=== PATIENT | female | born 1935 | race Caucasian/White ===

== ENCOUNTER 2018-11-18 14:30 | Outpatient (CLI) | payer MEDICARE, BC, SELFPAY ==
--- NOTE | 2018-11-18 14:10 | DI.RAD_ITS ---
EXAM: XR HIP RT AP LAT ONLY INDICATION: eval R hip pain. COMPARISON: No exams were available for comparison TECHNIQUE: 2D digital imaging was performed. FINDINGS: The hip joint is mildly narrowed. There is mild periarticular hypertrophic spurring. There is no vicente dence of a fracture or dislocation. 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
== END 2018-11-18 14:50 ==
PROVIDERS: Referring Provider Family Medicine; Visit Provider Student in an Organized Health Care Education/Training Program
DX: M25.551 Pain in right hip (principal); M16.11 Unilateral primary osteoarthritis, right hip; M65.251 Calcific tendinitis, right thigh
CPT/HCPCS: 99203; 99213; 73502

== ENCOUNTER 2022-03-18 13:36 | Emergency (ER) | payer MEDICARE, BC, SELFPAY ==
--- NOTE | 2022-03-18 13:30 | RT.EKG_ITS ---
APPROVED REPORT Exam: Resting ECG Reason for Exam: chest pain Patient Location: E HR:86 bpm ECG Measurements Heart Rate 86 AXIS SD 133 P 79 QRSd 87 QRS 64 QT 367 T 68 QTc 439 Conclusion Sinus rhythm...normal P axis, V-rate 60- [address] depression, lateral leads...ST <-0.07mV, I aVL V5 V6
[2022-03-18 13:43] VITALS: BP 173/60; PULSE 84; RESP 18; TEMP 36.6; O2SAT 99
--- NOTE | 2022-03-18 14:00 | DI.CT_ITS ---
Exam(s) CT CHEST PE CTA EXAM: CT CHEST PE CTA CLINICAL HISTORY: chest pain, history of PE. TECHNIQUE: Imaging Protocol: CT angiography of the chest was performed using pulmonary embolus swetha col. Multi planar reconstructions were performed. CONTRAST MATERIAL: Intravenous: Omnipaque 350 Contrast volume: 100 cc COMPARISON: CT ABD PELVIS WITH CONTRAST from 12/20/2016 FINDINGS: CHEST: PULMONARY ARTERIES: There are no intraluminal filling defects to suggest acute pulmonary emboli. LUNGS: There are no infiltrates nor evidence of pulmonary infarction.. There are no pleural effusions . No ominous pulmonary nodules seen. MEDIASTINUM: There is no hilar nor mediastinal adenopathy. Visualized thyroid unremarkable. CARDIAC: Heart size is upper normal. There is no pericardial effusion.Caliber of the thoracic aorta is within normal limits. No evidence of dissection. There is no significant shift of the interventri cular septum. PARTIALLY VISUALIZED UPPERMOST ABDOMEN: No obvious findings OSSEOUS: No significant osseous lesions.Cortical irregularity lateral aspect right 7th and 8th ribs i s probably related to motion artifact as opposed to actual acute fractures.. IMPRESSION: 1. No evidence of acute pulmonary emboli. No evidence of pulmonary infarction.No pleural effusions. No pneumothorax. 2. Adjacent cortical irregularities of the lateral aspect of the right 7th and 8th ribs noted. This is probably related to respiratory motion artifact but correlation with site of tenderness is recomme nded. Cannot exclude subtle adjacent fractures of the right ribs at this level. First read by [facility]. Final report called by myself to ER physician 121 23 7:22 p.m. RADIATION DOSE DELIVERED: 210.66mGy.cm Total DLP DATA REPOSITORY: All CT scans at this facility are submitted to the National Radiology Data Registry (NRDR) Dose Index Registry (DIR) with the [employer] (ACR). RADIATION OPTIMIZATION: All CT scans at this facility use at least one of these dose optimization te chniques: automated exposure control; mA and/or kV adjustment per patient size (includes targeted exa ms where dose is matched to clinical indication); or iterative reconstruction.
--- NOTE | 2022-03-18 14:03 | W.ED.GENAD ---
Discharge Plan Disposition Patient Disposition: Home Condition: Stable Discharge Details Clinical Impression: Chest pain Primary Care Provider: Kalpana Paul ED Provider: Gustavo Hagen Home Meds and New Rx's Prescriptions: Continued aspirin [Lo-Dose Aspirin] 81 mg tablet,delayed release (DR/EC) 81 mg PO DAILY cholecalciferol (vitamin D3) 1,000 unit capsule 1,000 unit PO DAILY acetaminophen [Tylenol] 325 MG tablet 650 mg PO Q4H PRN PRN (Reason: Abdominal Pain) Qty: 30 0RF multivitamin with iron [Daily Multi-Vitamins/Iron] 1 EACH tablet 1 tab PO DAILY Discharge Instructions Instructions: Chest Pain (ED) Additional Instructions: follow up with your primary care provider within 1 week if you feel more ill, have severe worsening pain or fevers return to the emergency department Medical Decision Making 86 yo female who denies prior cardiac history, does have a history of PE but not on anticoagulation anymore, comes in with chest pain since yesterday afternoon. This morning she had upper back pain as well so came here. She states when she moves her left arm the pain sometimes worsens otherwise no pain with exertion, diaphoresis, no dyspnea. She arrives stable speaking in full sentences in no distress and appears well. She has clear lungs, no jvd, no leg swelling or calf tenderness. Does have pain with palpation to the anterior chest. Given her age will obtain troponinin and ekg. Given her history of PE will also obtain CTA. She has no tearing back pain and normal peripheral vascular exam so doubt dissection labs and imaging unremarkable, given over 24 hours of symptoms do not feel delta troponin indicated. Discussed results with patient and prefers outpatient management rather than observation admission which I feel is reasonable given reassuring workup she will f/u with her pcp and return precautions given Differential Diagnosis Differential Diagnosis: chest wall pain, nstemi, pe Medical Records Medical records reviewed: Yes I reviewed the patient's medical records. Imaging Data Radiologic Study: Attestation: I personally reviewed and interpreted this imaging study as follows: Imaging: CT Scan Radiologist's impression: no acute findings Lab Data Lab results reviewed: Yes I reviewed the patient's lab results. ECG Data Attestation: I personally reviewed and interpreted this ECG (s) as follows: Prior ECG tracings: not available for review Interpretation: sinus rhythm, rate of 86, pr 133, no stemi HPI General Mode of arrival: ambulatory. Date/Time Provider Initiated Documentation: 03/18/22 13:48. Limitations to Documentation: no limitations. Information obtained by: patient. History of Present Illness 86 year old F presents to the emergency department with the chief complaint of chest pain, described as moderate, Patient started experiencing this day(s) (1) and it has been constant. No relieving factors improve symptom(s), Other factors that worsen symptoms (moving her left arm) . Patient notes denies fever/chills. Patient did receive the following treatments prior to arrival, none Related Data Home Medications Medication Instructions Recorded Confirmed acetaminophen 325 mg tablet 650 mg PO Q4H PRN PRN Abdominal 11/17/16 11/18/18 (Tylenol) Pain #30 tabs multivitamin with iron (Daily 1 tab PO DAILY 12/20/16 11/18/18 Multi-Vitamins/Iron tablet) aspirin 81 mg tablet,delayed 81 mg PO DAILY 11/18/18 11/18/18 release (Lo-Dose Aspirin) cholecalciferol (vitamin D3) 25 1,000 unit PO DAILY 11/18/18 11/18/18 mcg (1,000 unit) capsule Previous Rx's Medication Instructions Recorded acetaminophen 325 mg tablet 650 mg PO Q4H PRN PRN Abdominal 11/17/16 (Tylenol) Pain #30 tabs Allergies Allergy/AdvReac Type Severity Reaction Status Date / Time niacin Allergy Intermediate Unverified 11/18/18 13:46 simvastatin Allergy Mild Unverified 11/18/18 13:46 ampicillin Allergy Unknown Unverified 11/18/18 13:46 Tveafby-BRO-MeL Reductase AdvReac Unverified 11/18/18 13:46 Inhibitor [Goyjcxz-Xkt-Skc Reductase Inhibitor] General Stated Complaint: Chest Pain HENOK: 3 Review of Systems All systems reviewed & are unremarkable except as noted in HPI and below Constitutional Constitutional: Denies chills, Denies fever(s) and Denies weakness Eyes Eyes: Denies loss of vision Cardiovascular Cardiovascular: Denies dyspnea Respiratory Respiratory: Denies cough and Denies dyspnea Gastrointestinal Gastrointestinal: Denies abdominal pain, Denies nausea and Denies vomiting Musculoskeletal Musculoskeletal: Denies joint swelling Neurologic Neurologic: Denies loss of vision and Denies weakness PFSH All Active Problems (Updated 03/18/22 @ 16:05 by Gustavo Hagen MD) Chest pain (Acute) Calcific tendinitis of right hip (Acute) Acute appendicitis with localized peritonitis (Acute) Ileus following gastrointestinal surgery (Acute) Postoperative pulmonary embolism (Acute) Upper GI bleed (Acute) disposition (Acute) Warfarin-induced coagulopathy (Acute) Hypomagnesemia (Acute) Anemia (Acute) Medical History (Updated 03/18/22 @ 16:05 by Gustavo Hagen MD) Duodenal ulcer GERD (gastroesophageal reflux disease) Hyperlipidemia Osteoarthritis Peptic ulcer disease Pulmonary embolus Upper GI bleed secondary to anticoagulation for PE Surgical History (Updated 12/12/17 @ 14:34 by [employer] [place]) Appendectomy (11/10/16) Colonoscopy - IV Sedation EGD - MAC (12/01/16) Open Carpal Tunnel release Replacement of total knee joint bilateral Social History Smoking/Tobacco Use Status: Never Smoking risk assessment performed?: Yes Drug use: Never Current gender identity: female Do you feel safe in your relationship?: Yes Exam Const General: no acute distress Orientation: alert HENMT Head: normal to inspection Ears: external ears normal General nose exam: external nose normal Mouth: moist mucous membranes Eyes General: appearance normal, both eyes and all related structures Neck Neck: normal visual inspection Resp Effort & Inspection: normal respiratory effort and able to speak in complete sentences Auscultation: clear to auscultation bilaterally Cardio Jugular venous pressure: no JVD Rate: regular rate GI Palpation: soft and nontender Back/Spine/Pelvis Back: no CVA tenderness Skin General skin exam: no rashes or lesions noted Neuro General: patient alert and patient oriented x3 Extrem General: normal to inspection Psych Mental Status: mental status grossly normal Course Vital Signs Vital signs: Vital Signs Temperature 36.6 C 03/18/22 13:43 Pulse 84 03/18/22 13:43 Respiratory Rate 18 03/18/22 13:43 Blood Pressure 173/60 H 03/18/22 13:43 Pulse Oximetry 99 03/18/22 13:43 Temperature 36.6 C 03/18/22 13:43 Temperature Source Temporal Artery Scan 03/18/22 13:43 Pulse 84 03/18/22 13:43 Respiratory Rate 18 03/18/22 13:43 Blood Pressure 173/60 H 03/18/22 13:43 Blood Pressure Position Supine 03/18/22 13:43 Pulse Oximetry 99 03/18/22 13:43 Oxygen Delivery Method Room Air 03/18/22 13:43 Oxygen Flow Rate 0 03/18/22 13:43 Pain Level 3 03/18/22 13:43
[2022-03-18 14:26] LABS: Abs Immature Grans 0.02 10^3/uL (0.0-0.06); Absolute Basophil Count 0.04 10^3/uL (0.0-0.2); Absolute Eosinophil Count 0.04 10^3/uL (0.0-0.7); Absolute Lymphocyte Count 1.78 10^3/uL (1.2-3.4); Absolute Monocyte Count 0.62 10^3/uL (0.1-0.8); Absolute Neutrophil Count 4.95 10^3/uL (1.2-6.7); Basophils % 0.5; Eosinophils % 0.5; HCT 44.4 % (36.0-46.0); HGB 14.7 g/dL (11.2-15.7); Immature Grans % 0.3; Lymphocytes % 23.9; MCH 30.5 pg (27.0-33.0); MCHC 33.1 % (32.0-36.0); MCV 92 fL (80-95); MPV 10.7 fL (8.0-11.0); Monocytes % 8.3; Neutrophils % 66.5; Platelet Count 225 10^3/uL (130-400); RBC 4.82 10^6/uL (3.93-5.22); RDW 14.2 % (11.7-14.6); RDW-SD 48.3 fL; WBC 7.45 10^3/uL (4.4-10.8)
[2022-03-18 14:44] LABS: ALT 22 U/L (14-59); AST 28 U/L (15-37); Alkaline Phosphatase 116 U/L (46-116); Anion Gap 8.6 mmol/L (3-11); BUN 28 mg/dL (7-18); Bilirubin, Total 0.5 mg/dL (0.2-1.0); CO2 30.4 mmol/L (21.0-32.0); CREATININE 0.9 mg/dL (0.55-1.02); Calcium 10.5 mg/dL (8.5-10.1); Chloride 102 mmol/L (98-107); Estimated GFR 63.04 (mL/min/1.73m2); Glucose 123 mg/dL (74-106); Magnesium 2.1 mg/dL (1.8-2.4); Potassium 3.7 mmol/L (3.5-5.1); Sodium 141 mmol/L (136-145); Total Protein 9.1 g/dL (6.4-8.2); Troponin I < 50 ng/L (<or=60)
[2022-03-18 14:45] LABS: PTT Activated 22.5 sec (21.0-27.5); Prothrombin Time 9.8 sec (9.3-11.0)
[2022-03-18 14:53] VITALS: RESP 12
[2022-03-18] MEDS: Normal Saline - Diluent 50 ML VIAL IJ (15:12)
[2022-03-18] MEDS: Normal Saline Flush 10 ML SYR IVP (15:13)
[2022-03-18] MEDS: Omnipaque 350 MG/ML 100 ML BTL 60 ML IJ (15:13)
--- NOTE | 2022-03-18 15:37 | DI.VRAD_ITS ---
PROCEDURE INFORMATION: Exam: CTA Chest With Contrast Exam date and time: 03/18/2022 3:06 PM Age: 86 years old Clinical indication: Other: Chest pain, history of pe TECHNIQUE: Imaging protocol: Computed tomographic angiography of the chest with contrast. 3D rendering (Not supervised by radiologist): MIP and/or 3D reconstructed images were created by the technologist. Contrast material: OMNIPAQUE 350; Contrast volume: 60 ml; Contrast route: INTRAVENOUS (IV); COMPARISON: CT CHEST FOR PE, ABD PELVIS W 11/20/2016 5:52 PM FINDINGS: Pulmonary arteries: No evidence of pulmonary embolus to the segmental level. Aorta: No aneurysm of the aorta. No dissection of the aorta. Lungs: Bibasilar atelectasis Pleural spaces: Unremarkable. No pneumothorax. No pleural effusion. Heart: Unremarkable. No cardiomegaly. No pericardial effusion. Lymph nodes: Unremarkable. No enlarged lymph nodes. Bones/joints: Unremarkable. No acute fracture. Soft tissues: Unremarkable. Other findings: Motion artifact degrades some of the images IMPRESSION: 1. No evidence of pulmonary embolus to the segmental level. 2. No aneurysm of the aorta. 3. No dissection of the aorta. Dictated and Authenticated by: Beronica Alexandra MD. Ordering:MADELAINE Chen MD
[2022-03-18 16:42] VITALS: BP 136/40; PULSE 80; RESP 15; O2SAT 98
== END 2022-03-18 16:51 | disposition home or self-care (01) ==
PROVIDERS: Emergency Provider Emergency Medicine
DX: R07.9 Chest pain, unspecified (principal)
CPT/HCPCS: 71275; 80053; 93005; 99285; 83735; 84484; 85025; 85610; 85730; 93010; 99284; J3490

== ENCOUNTER 2022-05-18 03:15 | Outpatient (CLI) | payer MEDICARE, BC, SELFPAY ==
--- NOTE | 2022-05-18 15:00 | DI.US_ITS ---
APPROVED REPORT EXAM: Comprehensive 2D, Doppler, and color-flow Echocardiogram Patient Location: Out-Patient [facility] Heater: Kahlil Thomas RDMS, RVT Indications: HARRIS Other Information Study Quality: Adequate Conclusion Normal left ventricular wall thickness and chamber size. Ejection fraction is 61%. Wall motion is n ormal Normal right ventricular size and systolic function Left atrium is moderately dilated. Right atrium is normal in size The aortic valve is trileaflet without stenosis or regurgitation Normal mitral valve with mild regurgitation Normal tricuspid valve with trace to mild regurgitation. Estimated right ventricular systolic pressu re is 31 mmHg Wall motion Left Ventricle The left ventricle is normal size. The left ventricular systolic function is normal. The left ventric ular ejection fraction is within the normal range. There is normal left ventricular wall thickness. T here is normal LV segmental wall motion. The left ventricular diastolic function is normal. There is no ventricular septal defect visualized. The Left Ventricular Ejection Fraction is 61%. Right Ventricle The right ventricle is normal size. The right ventricular systolic function is normal. The RVSP is 31 .1 mmHg. Atria Left atrium is moderately dilated. Right atrium is normal in size The interatrial septum is intact wi th no evidence for an atrial septal defect. Aortic Valve The aortic valve is normal in structure. Aortic valve is trileaflet. There is no aortic valvular sten osis. No aortic regurgitation is present. Mitral Valve The mitral valve is normal in structure. No evidence of mitral valve stenosis. Mild mitral regurgita tion. Tricuspid Valve The tricuspid valve is normal in structure. There is no tricuspid valve stenosis. Mild to moderate tr icuspid regurgitation. Pulmonic Valve The pulmonary valve is normal in structure. There is no pulmonic valvular stenosis. There is no pulmo leeanne valvular regurgitation. Great Vessels The aortic root is normal in size. Ascending aorta is not well visualized. Aortic arch is not well v isualized. The IVC is normal in size and collapses >50% with inspiration. Pericardium There is no pericardial effusion. 2D Dimensions IVSD d PLAX 0.44 cm F: 0.6-1.0 LV Vol A2C d MOD 44.5 mL LVPW d PLAX 0.67 cm F: 0.6 - 1.0 LV Vol A4C d MOD 55.5 mL LVID d PLAX 4.37 cm F: 3.8 - 5.2 LA vol/ BSA A4C s A-L 35.9 mL/m2 LVDs 2.90 cm F: 2.2 - 3.5 LA Area A4C s MOD 16.57 cm2 Ao Root d 2.32 cm F: 2.7 - 3.3 LV EF A4C MOD 63.1 % LV EF Teichholz 61.3 % LV EF A2C MOD 63.3 % LVEF (Isabel's) 64.13 % F: 54 - 74 LV EF Biplane MOD 64.1 % LV Volume 44.60 mL F: 46 - 106 SV 33.72 mL LV Volume Index 30.97 mL/m2 F: 29 - 61 SV Index 23.47 mL/m2 LV Vol Biplane MOD 52.6 mL FS 32.65 % M-Mode TAPSE 2.60 cm (M/F) >1.7 LV Diastology MV E' medial 0.089 (>0.07 m/s) E/A Ratio 0.9 LV E/e MED 8.90 (<14) MV E Vmax 0.80 (0.4-1.3 m/s) MV E' lateral 0.111 (>0.1 m/s) MV A Vmax 0.90 (0.4-1.3 m/s) LV E/e LAT 7.10 (<14) MV E/A Ratio 0.87 MV E/E' medial 8.91 MV E/E' lateral 7.13 Aortic Valve LVOT Area 1.99 cm2 AoV Area Vmax 1.19 cm2 LVOT Vmax 0.85 m/s AoV Area/ BSA (Vmax) 0.83 cm2/m2 LVOT Mean Francisco J. 0.61 m/s RODERICK Mean Francisco J. 1.19 cm2 LVOT Peak Grad 2.9 mmHg RODERICK Mean Francisco J. Index 0.83 cm2/m2 LVOT Mean Grad 1.6 mmHg LVOT VTI 0.215 m LVOT Diam s 1.55 cm AoV Vmax 1.42 m/s Velocity Ratio 0.60 AoV Mean Francisco J. 1.02 m/s AoV Peak Grad 8.0 mmHg LVOT SV 42.80 mL AoV Mean Grad 4.6 mmHg AoV VTI 0.340 m AoV Area VTI 1.26 cm2 AoV Area/ BSA (VTI) 0.88 cm/m2 Mitral Valve MV DT 276 (160-240 msec) MV PHT 80 msec MV Area PHT 2.75 cm2 MV VTI 0.345 m MV Area VTI 1.24 (4.0-6.0 cm2) Pulmonary Valve PV Vmax 1.08 (0.5-1.5 m/s) RVOT Peak Gr. 1.67 mmHg PV Peak Grad 4.6 mmHg RVOT Mean Gr. 1.05 mmHg PV Mean Grad 2.3 mmHg RVOT VTI 0.159 m PV VTI 0.214 m RVOT Vmax 0.65 m/s Tricuspid Valve TR Peak Grad 28.1 mmHg TR Vmax 2.65 m/s RA Pressure 3.00 mmHg RVSP (TR) 31.1 mmHg
== END 2022-05-18 03:35 ==
LOC: DI 03:16
PROVIDERS: PCP Family Medicine; Visit Provider Family Medicine
DX: R06.09 Other forms of dyspnea (principal)
CPT/HCPCS: 93306

== ENCOUNTER 2022-08-02 00:38 | Outpatient (CLI) | payer MEDICARE, BC, SELFPAY ==
--- NOTE | 2022-08-02 | DI.RAD_ITS ---
Exam(s) XR CHEST 2V PA LATERAL EXAM: XR CHEST 2V PA LATERAL CLINICAL HISTORY: DYSPNEA ON EXERTION, R06.09 TECHNIQUE: 2D digital imaging was performed of the chest. Two images were obtained. PA and lateral views were obtained. COMPARISON: CR PORTABLE CHEST ONE VIEW from 11/24/2016 FINDINGS: MEDIASTINUM: Normal. HEART: Normal. PULMONARY VASCULATURE: Normal. LUNGS: Clear. PLEURAL SPACE: No pleural effusion or pneumothorax. BONE:Within normal limits for the patient's age. OTHER FINDINGS:Normal. IMPRESSION: No acute pulmonary findings. DATA REPOSITORY: RADIATION DOSE DELIVERED:
== END 2022-08-02 00:58 ==
LOC: DI 00:38
PROVIDERS: PCP Family Medicine; Visit Provider Family Medicine
DX: R06.09 Other forms of dyspnea (principal)
CPT/HCPCS: 71046

== ENCOUNTER 2022-08-11 03:11 | Outpatient (CLI) | payer MEDICARE, BC, SELFPAY ==
[2022-08-11] MEDS: Inhaler, Assist Device 1 EACH MC (14:22)
[2022-08-11] MEDS: Albuterol HFA 18 GM 200 PUFF INH IH (14:22)
--- NOTE | 2022-08-14 14:06 | W.PFT ---
Date of service: 08/11/22 Time of Service: 12:49 Pulmonary Function Test Result Indications: Cough Interpretation Spirometry: There is no airflow limitation. There is no significant bronchodilator response. Lung Volumes: There is some air trapping. Diffusion Capacity: Normal diffusion. Airway Pressure: Normal airways resistance. Impression Normal pulmonary function testing but with likely air trapping. This can be seen in asthma. Clinical Correlation therefore is recommended.
== END 2022-08-11 03:12 | disposition home or self-care (01) ==
LOC: RT 03:11
PROVIDERS: PCP Family Medicine; Visit Provider Family Medicine
DX: R05.8 Other specified cough (principal); J45.909 Unspecified asthma, uncomplicated
CPT/HCPCS: 94060; 94726; 94729

== ENCOUNTER 2022-09-19 01:47 | Outpatient (CLI) | payer MEDICARE, BC, SELFPAY ==
--- NOTE | 2022-09-19 14:41 | DI.RAD_ITS ---
Exam(s) XR HAND LT COMPLETE EXAM: XR HAND LT COMPLETE CLINICAL HISTORY: LT HAND PAIN, M79.642. TECHNIQUE: 2D digital imaging was performed. COMPARISON: No exams were available for comparison FINDINGS: 3 views No evidence of acute fracture nor subluxations. No erosions. Moderate-advanced degenerative changes noted at the 1st carpometacarpal joint. MCP joints appear relatively unremarkable as do the PIP balbina nts. There are significant degenerative changes in the DIP joints, most evident within the DIP joint of the 2nd-index finger where there is periarticular calcification evident more prominent than at th e other DIP joints. Probable equivalent of Heberden's nodes IMPRESSION: Significant degenerative changes most evident in the DIP joints. DATA REPOSITORY: RADIATION DOSE DELIVERED:
== END 2022-09-19 02:07 ==
LOC: DI 01:47
PROVIDERS: PCP Family Medicine; Visit Provider Family Medicine
DX: M19.042 Primary osteoarthritis, left hand (principal)
CPT/HCPCS: 73130

== ENCOUNTER 2022-10-06 02:46 | Outpatient (CLI) | payer MEDICARE, BC, SELFPAY ==
[2022-10-06] MEDS: Albuterol HFA 18 GM 200 PUFF INH IH (17:03)
[2022-10-06] MEDS: Methacholine 100 MG VIAL IH (17:03)
[2022-10-06] MEDS: Inhaler, Assist Device 1 EACH MC (17:04)
--- NOTE | 2022-10-10 06:59 | W.PFT ---
Date of service: 10/06/22 Time of Service: 15:00 Pulmonary Function Test Result Indications: Dyspnea Interpretation Spirometry: There is no airflow limitation. There was a 14% decrease in FEV1 with administration of 16mg/mL methacholine. Impression Negative methacholine challenge Clinical Correlation therefore is recommended.
== END 2022-10-06 02:47 | disposition home or self-care (01) ==
LOC: RT 02:46
PROVIDERS: PCP Family Medicine; Visit Provider Physician Assistant Surgical
DX: J45.909 Unspecified asthma, uncomplicated (principal)
CPT/HCPCS: 94060; 94070; J7674

== ENCOUNTER → 2022-11-15 09:23 | Outpatient (BNVA) | payer MEDICARE, BC, SELFPAY | PROVIDERS: PCP Family Medicine; Referring Provider Family Medicine; Visit Provider Psychiatry & Neurology Neurology | DX: G56.02 Carpal tunnel syndrome, left upper limb (principal); M79.642 Pain in left hand | CPT/HCPCS: 95909; 99203; 99213 ==

== ENCOUNTER → 2022-12-14 08:39 | Outpatient (BNVA) | payer MEDICARE, BC, SELFPAY | PROVIDERS: PCP Family Medicine; Referring Provider Family Medicine; Visit Provider Student in an Organized Health Care Education/Training Program | DX: G56.02 Carpal tunnel syndrome, left upper limb (principal); M65.332 Trigger finger, left middle finger; M65.342 Trigger finger, left ring finger; I34.0 Nonrheumatic mitral (valve) insufficiency; I07.1 Rheumatic tricuspid insufficiency | CPT/HCPCS: 99213 ==

== ENCOUNTER 2022-12-20 10:17 | Day surgery (SDC) | payer MEDICARE, BC, SELFPAY ==
[2022-12-20 10:45] VITALS: BP 165/67; PULSE 73; RESP 18; TEMP 36.4; O2SAT 98
--- NOTE | 2022-12-20 11:16 | W.ANESPRE ---
General Info Date of Service Date Performed: 12/20/22 Height: 5 ft 1 in Weight: 49.895 kg Body Mass Index (BMI): 20.7 Surgical Procedure: Operation Date: 12/20/22 12:55 Proposed Procedure Side Surgeon p Wrist ECTR Left Giovanni Montalvo MD s Trigger Finger Release, LMF & LRF Giovanni Montalvo MD Meds Allergies and Home Medications Allergies Allergy/AdvReac Type Severity Reaction Status Date / Time niacin Allergy Intermediate Verified 12/20/22 10:56 simvastatin Allergy Mild Verified 12/20/22 10:56 ampicillin Allergy Unknown Skin Rash Verified 12/20/22 10:56 Sekamnf-SDN-UoC Reductase AdvReac Verified 12/20/22 10:56 Inhibitor [Nkdahyi-Dbx-Sho Reductase Inhibitor] penicillin Allergy Intermediate Skin Rash Uncoded 12/20/22 10:56 Home Medication Medication Instructions Recorded acetaminophen 325 mg tablet 650 mg (2 x 325 mg) PO Q4H PRN PRN 11/17/16 (Tylenol) Abdominal Pain #30 tabs cholecalciferol (vitamin D3) 25 1,000 unit PO DAILY 11/18/18 mcg (1,000 unit) capsule cyanocobalamin (vitamin B-12) 500 500 mcg PO DAILY 09/13/22 mcg tablet vit C 250 mg-vit E 90 mg-zinc 40 2 tab PO DAILY 09/18/22 mg-copper 1 cn-fbqnvr-eftjnt capsule (PreserVision AREDS-2) Current Visit Medications: Current Medications Generic Name Dose Route Start Last Admin Trade Name Freq PRN Reason Stop Dose Admin Ringer's Solution 1,000 mls @ 80 mls/hr 12/20/22 06:00 IV 01/18/23 23:59 INFUSION RENETTA Cefazolin Sodium/Dextrose 2 gm in 50 mls @ 100 mls/hr 12/20/22 06:00 Ancef Duplex IVPB 01/18/23 23:59 PREOP RENETTA IV Miscellaneous Supplies 1 each 12/20/22 06:00 Iv Access IV 01/18/23 23:59 DIRECTED RENETTA Sodium Chloride 0 ml 12/20/22 06:00 Normal Saline Flush 10 Ml Syr IV 01/18/23 23:59 PRN PRN Sodium Chloride 0 ml 12/20/22 06:00 Normal Saline 10 Ml Vial IJ 01/18/23 23:59 DIRECTED PRN Sterile Water 0 ml 12/20/22 06:00 Water,Injection,Sterile 10 Ml Vial IJ 01/18/23 23:59 DIRECTED PRN PFSH Active Problems Active Problems: Problem Status Onset Code Trigger finger, left ring finger M65.342 Trigger finger, left middle finger M65.332 Left carpal tunnel syndrome G56.02 Asthma J45.909 Osteopenia M85.80 Paresthesia R20.2 Subjective tinnitus of left ear H93.12 Hypokalemia E87.6 Mitral valve regurgitation I34.0 Tricuspid valve regurgitation I07.1 Pain in right hip M25.551 BRBPR (bright red blood per rectum) K62.5 Dyspnea R06.00 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 Peptic ulcer disease Duodenal ulcer GERD (gastroesophageal reflux disease) Upper GI bleed secondary to anticoagulation for PE Pulmonary embolus Osteoarthritis Hyperlipidemia Surgical History Surgical History (Updated 12/19/22 @ 10:37 by Prosper Romo) Hx of repair of rotator cuff History of bilateral knee replacement Hx of tubal ligation Hx of dilation and curettage x2 following miscarriages. Replacement of total knee joint bilateral Open Carpal Tunnel release EGD - MAC (12/01/16) Colonoscopy - IV Sedation Appendectomy (11/10/16) Tobacco Smoking/Tobacco Use Status: Never Alcohol Alcohol Intake: never Substance Use Substance use: Never Substance use type: does not use Vital Signs and Lab Results Vital Signs Most Recent Vital Signs in EMR: Most Recent Vital Signs Temp Pulse Resp BP Pulse Ox 36.4 C L 73 18 165/67 H 98 12/20/22 10:45 12/20/22 10:45 12/20/22 10:45 12/20/22 10:45 12/20/22 10:45 Lab Results Blood Type / Crossmatch: No Data to Display Complete Blood Count: No Data to Display Complete Metabolic Panel: No Data to Display Liver Function Panel: No Data to Display Coagulation Panel: No Data to Display Cardiac Panel: No Data to Display Arterial Blood Gas: No Data to Display Venous Blood Gas: No Data to Display Pancreas Panel: No Data to Display Thyroid Panel: No Data to Display Infectious Disease: No Data to Display Blood Cultures: No Data to Display Toxicology Panel: No Data to Display Anesthesia Assessment and Plan Anesthesia History Personal History: No History of Anesthesia Complications Family History: No Family History of Anesthesia Complications Exercise Tolerance Exercise Tolerance: Metabolic Equivalents>4 Pertinent Negatives Pertinent Negatives: No Symptoms of GERD Cardiac & Pulmonary Exam Cardiac Exam: Normal S1/S2 Heart Sounds Pulmonary Exam: Clear Bilateral Breath Sounds Implantable Cardiac Device Does patient have a Pacemaker or an ICD?: No Airway Exam Known Difficult Airway: No Mallampati Class: 2 Mouth Opening: Normal (> 3cm) Thyromental Distance: Greater than 3 cm Neck Range of Motion: Full ROM Neck Circumference: Normal Teeth Condition: Generalized Poor Dentition ASA Classification ASA Score: ASA 2 Emergency Case?: No NPO Status NPO Status: NPO Clears >2 hours, Solids >8 hours Anesthesia Plan Resuscitation Status: Full Code Anesthesia Technique: MAC Anesthesia Airway Planned: Natural Airway Monitors Used: Standard Monitors
[2022-12-20 11:21] VITALS: BMI 20.7
[2022-12-20] MEDS: Lactated Ringers 1,000 ML 80 ML IV (11:31)
--- NOTE | 2022-12-20 12:20 | W.PM.DSUDISC ---
Date of service: 12/20/22 Time of Service: 12:20 Discharge Plan Disposition Patient Disposition: Home Condition: Good Discharge Details Reason For Visit: L ECTR, LMF and LRF trigger release Attending Provider: Giovanni Montalvo Primary Care Provider: Jessica De La Vega Home Meds and New Rx's Prescriptions: New acetaminophen 500 mg tablet 1,000 mg PO TID Qty: 90 0RF hydrocodone-acetaminophen 5-325 mg tablet 1 tab PO Q6H PRN (Reason: pain) Qty: 6 0RF ibuprofen 600 mg tablet 600 mg PO TID PRN (Reason: pain) Qty: 90 0RF Continued cholecalciferol (vitamin D3) 1,000 unit capsule 1,000 unit PO DAILY cyanocobalamin (vitamin B-12) 500 mcg tablet 500 mcg PO DAILY PreserVision AREDS-2 250-90-40-1 mg capsule 2 tab PO DAILY Discontinued acetaminophen [Tylenol] 325 MG tablet 650 mg PO Q4H PRN PRN (Reason: Abdominal Pain) Qty: 30 0RF Discharge Instructions Stand Alone Forms: [place] C. Tunnel Release, [place] T. Finger Release Referrals: Giovanni Montalvo MD [ [facility] STAFF PHYSICIAN] - Activity:: Activity as Tolerated Remove Dressings/Wound Care:: 48 hours Shower/Bathe:: 48 hours Diet:: As Tolerated Discharge Orders Discharge Orders: Discharge Order (Routine); Ordered 12/20/22 Ordered By: Martin Campos DS: Diagnosis Discharge Diagnosis (1) Trigger finger, left middle finger: Status: Acute (2) Trigger finger, left ring finger: Status: Acute (3) Left carpal tunnel syndrome: Status: Acute
[2022-12-20] MEDS: Lidocaine 1% Multi-Dose W/EPI 1/100,000 50 ML VIAL (13:03)
[2022-12-20] MEDS: Sodium Bicarbonate 50 MEQ/50 ML VIAL (13:04)
[2022-12-20 13:13] VITALS: BP 95/43; PULSE 72; RESP 16; TEMP 36.2; O2SAT 97
--- NOTE | 2022-12-20 13:32 | W.ANESPOSTOP ---
Postoperative Evaluation Date, Time and Location Date Performed: 12/20/22 Time Performed: 13:33 Patient Location: Day Surgery Unit Vital Signs Most Recent Imported Vital Signs: Most Recent Vital Signs Temp Pulse Resp BP Pulse Ox 36.2 C L 72 16 95/43 L 97 12/20/22 13:13 12/20/22 13:13 12/20/22 13:13 12/20/22 13:13 12/20/22 13:13 Pain Score Most Recent Pain Score: Most Recent Pain Score Pain Level 2 12/20/22 10:45 Assessment Mental Status: Awake (Alert & Oriented to Patient Baseline) Airway and Respiratory Function: Patent airway with normal (patient baseline) respiratory exam Cardiovascular Function: Hemodynamically Stable Hydration Status: Adequately Hydrated Nausea & Vomiting: No Nausea or Vomiting Pain: Pt. Denies Any Pain Peripheral Nerve Block: Patient did not receive a nerve block
[2022-12-20 14:00] VITALS: BP 143/60; PULSE 75; RESP 18; TEMP 36.5; O2SAT 98
--- NOTE | 2022-12-20 17:41 | ROE_ITS ---
Date of service: 12/20/22 Time of Service: 13:30 Operative Note Operative Note DATE OF PROCEDURE: 12/20/22 PRE-OP DIAGNOSIS: Left Carpal Tunnel Syndrome, Left Middle and Ring Finger Trigger Fingers POST-OP DIAGNOSIS: same PROCEDURE: Left Endoscopic Carpal Tunnel Release, Left Middle and Ring Finger Trigger Releases SURGEON: Giovanni Montalvo ANESTHESIA TYPE: General:No Airway Refer to Anesthesia Record ESTIMATED BLOOD LOSS: 0 PATHOLOGY: none sent TOURNIQUET TIME: 10 COMPLICATIONS: None Patient was transported to: same day Patient's condition: stable Indications: I have seen NAME in clinic for symptoms of carpal tunnel syndrome as well as trigger fingers of the ring and middle fingers. The numbness, tingling, and pain limited function. Clinical exam findings confirmed the diagnosis of carpal tunnel syndrome and trigger finger. Nonoperative measures such as bracing, time, activity modifications had been tried but disability and pain persisted. I discussed carpal tunnel release with the patient. I reviewed the risks of the procedure to include, but not limited to, bleeding, infection, pain, stiffness, incomplete release, damage to nerves or vessels, persistent numbness, recurrence. Despite these risks, the patient elected to proceed. Findings: There was tightened carpal tunnel. This was dilated and released successfully with the endoscopic with increased space within the tunnel. The antebrachial fascia was released proximally freeing the median nerve at the wrist. The A1 pulleys of the middle and ring fingers were released without difficulty. Procedure Description: Julita was greeted in the preoperative holding area where the correct side was identified and marked. The consent was reviewed with the patient and signed. The history and physical was updated. All questions were answered. She was taken back to the operating room. The patient was placed into the supine position on the operating room table with the left arm on an arm board. A nonsterile tourniquet was placed high onto the arm. All bony prominences were well padded. Prophylactic antibiotics in the form of Cefazolin were administered. The left arm was then prepped with Chloraprep and draped in a standard fashion with stockinette and extremity drape. A timeout to confirm correct identity, side and site, procedure, allergies, anesthesia, and medical concerns was performed. The surgical site was marked in the volar wrist creases in line with the radial border of the fourth ray. This area was anesthetized with approximately 5cc of 1% Lidocaine with epinephrine. The proposed surgical sites of the A1 shellie r elease for the ring and middle fingers were also marked and anesthetized. The limb was then exsanguinated with an Esmarch. The skin was incised with a 15 blade, approximately 1cm. The skin only was cut and the deeper tissue was dissected bluntly with a tenotomy scissor, avoiding passing nerve and venous structures. The fascia was penetrated and opened bluntly. A two-prong skin hook was placed under this proximal fascial edge. A series of hamate finders were used to identify and dilate the carpal tunnel. Synovial elevator was used to free synovial attachments to the underside of the transverse carpal ligament. My thumb was kept in the palm to dea the distal extent of the carpal tunnel and correctly position the hand. The Microaire endoscope was inserted without difficulty and without resistance. Excellent visualization showed horizontally running fibers of the transverse carpal ligament (TCL). The distal extent of the TCL was visualized and the end of the scope palpated with the thumb. The blade was elevated and withdrawn from distal to proximal. The TCL was split into two flaps. The endoscope was reinserted to confirm complete release and any remnant ligament was incised. The scope was withdrawn and the proximal aspect of the carpal tunnel was grossly inspected and appeared release with the median nerve visible. The antebrachial fascia at the level of the wrist was then freed from the overlying skin and then the underlying median nerve with blunt dissection. This was transected longitudinally for about 3cm proximal to the wrist incision. The wound was then irrigated with easy flow of irrigant distally and proximally. The incision was closed with a single 4-0 Nylon suture. Starting with the ring finger, a longitudinal incision was made through skin only, approximately 1cm. The deep tissues were dissected bluntly. Once the A1 shellie and flexor tendons were identified the soft tissue including neurovascular structures were retracted medially and laterally. There were no crossing structures over the A1 shellie. The proximal edge of the shellie was identified and the shellie was incised with tenotomy scissors. There was a release of the tendons once this was fully released. The tendons were then removed from the wound and inspected. Excess synovium was resected. The hand was then once more inspected for any A0 shellie or area of possible constriction. The wound was then irrigated and the skin was closed with a 4-0 Nylon. Turning attention to the middle finger, incision was made through skin only, approximately 1cm. The deep tissues were dissected bluntly. Once the A1 shellie and flexor tendons were identified the soft tissue including neurovascular structures were retracted medially and laterally. There were no crossing structures over the A1 shellie. The proximal edge of the shellie was identified and the shellie was incised with tenotomy scissors. There was a release of the tendons once this was fully released. The tendons were then removed from the wound and inspected. The wound was then irrigated and the skin was closed with a 4-0 Nylon. The wound was dressed with Xeroform, Gauze, Kerlix and Donovan. The tourniquet was deflated with the initial dressing and held with some pressure. Blood flow returned easily to all digits with capillary refill less than 2 seconds. The patient tolerated the procedure well and was returned to the Same Day Surgery area in a stable condition suffering no known complication.
== END 2022-12-20 14:23 | disposition home or self-care (01) ==
PROVIDERS: PCP Family Medicine; Visit Provider Student in an Organized Health Care Education/Training Program
PROC: 01N54ZZ Release Median Nerve, Percutaneous Endoscopic Approach (ICD-10-PCS; CPT 29848; principal; 2022-12-20 12:45)
PROC: (CPT 26055; 2022-12-20 12:45)
DX: G56.02 Carpal tunnel syndrome, left upper limb (principal); M65.332 Trigger finger, left middle finger; M65.342 Trigger finger, left ring finger
CPT/HCPCS: 26055 ×2; 29848; 00123; J2001

== ENCOUNTER → 2023-01-01 09:33 | Outpatient (BNVA) | payer MEDICARE, BC, SELFPAY | PROVIDERS: PCP Family Medicine; Referring Provider Family Medicine; Visit Provider Student in an Organized Health Care Education/Training Program | DX: Z47.89 Encounter for other orthopedic aftercare (principal); M65.332 Trigger finger, left middle finger; M65.342 Trigger finger, left ring finger; G56.02 Carpal tunnel syndrome, left upper limb ==